=== PATIENT | female | born 1960 | race Caucasian/White ===

== ENCOUNTER 2018-10-10 09:01 | Outpatient (REF) | payer MEDICAID, SELFPAY ==
[2018-10-10 12:55] LABS: ALT 25 U/L (12-78); AST 22 U/L (15-37); Cholesterol 371 mg/dL (50-200); HDL Cholesterol 66 mg/dL (40-60); LDL CHOLESTEROL 270 mg/dL (<100); Triglyceride 70 mg/dL (30-150)
== END 2018-10-10 09:21 ==
LOC: NCHCN 09:01
PROVIDERS: PCP Family Medicine; Visit Provider Family Medicine
DX: E78.5 Hyperlipidemia, unspecified (principal)
CPT/HCPCS: 80061; 83721; 84450; 84460

== ENCOUNTER 2018-10-12 16:13 | Outpatient (REF) | payer MEDICAID, SELFPAY ==
--- NOTE | 2018-10-12 14:30 | PAPFT_PTH ---
PAT[facility]: [id number] AGE/SX: 58/F ROOM: RE10/12/[address]: Maryjane Castellon : 1960 BED: DIS: 10/12/2018 SPEC #: [id number] RECD: 10/16/18 13:05 STATUS: NATALIA REAlia #: [id number] JOSEPH: 10/12/18 14:[address]: Maryjane Castellon DEPT: [facility] Cytology RECD BY: Kathleen Yen ENTERED: 10/16/18 13:05 SP TYPE: PAPFT OTHR DR: Sun Cornejo Tissues: 1 - CX/ENDOCX FOR PAP SMEARS Procedures: PAP THIN PREP/[facility] Screening HPV DNA PROBE Comments: [id number]
== END 2018-10-12 16:33 ==
LOC: NCHCN 16:13
PROVIDERS: PCP Family Medicine; Visit Provider Nurse Practitioner Family
DX: Z12.4 Encounter for screening for malignant neoplasm of cervix (principal); Z11.51 Encounter for screening for human papillomavirus (HPV); Z01.419 Encounter for gynecological examination (general) (routine) without abnormal findings
CPT/HCPCS: 88142; 87624

== ENCOUNTER 2020-01-30 08:42 | Outpatient (REF) | payer SELFPAY ==
[2020-01-30 20:48] LABS: HCT 42.7 % (36.0-46.0); HGB 13.7 g/dL (11.2-15.7); MCH 28.8 pg (27.0-33.0); MCHC 32.1 % (32.0-36.0); MCV 89.7 fL (80-95); MPV 10.8 fL (8.0-11.0); Platelet Count 263 10^3/uL (130-400); RBC 4.76 10^6/uL (3.93-5.22); RDW 13.2 % (11.7-14.6); RDW-SD 43.8 fL; WBC 5.08 10^3/uL (4.4-10.8)
[2020-01-30 21:16] LABS: ALT 30 U/L (14-59); AST 23 U/L (15-37); Alkaline Phosphatase 78 U/L (46-116); Anion Gap 6.6 mmol/L (3-11); BUN 13 mg/dL (7-18); Bilirubin, Total 0.5 mg/dL (0.2-1.0); CO2 30.4 mmol/L (21.0-32.0); CREATININE 0.79 mg/dL (0.55-1.02); Calcium 9.1 mg/dL (8.5-10.1); Chloride 101 mmol/L (98-107); Glucose 98 mg/dL (74-106); HDL Cholesterol 69 mg/dL (40-60); Potassium 4.2 mmol/L (3.5-5.1); Sodium 138 mmol/L (136-145); Total Protein 7.5 g/dL (6.4-8.2); Triglyceride 90 mg/dL (<150)
[2020-01-30 21:17] LABS: Calculated LDL 412 mg/dL (<100); Cholesterol 499 mg/dL (<200)
== END 2020-01-30 09:02 ==
LOC: NCHCN 08:42
PROVIDERS: PCP Family Medicine; Visit Provider Family Medicine
DX: E78.5 Hyperlipidemia, unspecified (principal); Z00.00 Encounter for general adult medical examination without abnormal findings
CPT/HCPCS: 80053; 80061; 85027

== ENCOUNTER 2021-07-13 14:35 | Outpatient (REF) | payer SELFPAY ==
[2021-07-13 16:27] LABS: HCT 42.7 % (36.0-46.0); HGB 13.3 g/dL (11.2-15.7); MCH 28.8 pg (27.0-33.0); MCHC 31.1 % (32.0-36.0); MCV 92.4 fL (80-95); MPV 10.9 fL (8.0-11.0); Platelet Count 286 10^3/uL (130-400); RBC 4.62 10^6/uL (3.93-5.22); RDW 13.3 % (11.7-14.6); RDW-SD 45.2 fL; WBC 5.43 10^3/uL (4.4-10.8)
[2021-07-13 16:37] LABS: ALT 66 U/L (14-59); AST 35 U/L (15-37); Alkaline Phosphatase 95 U/L (46-116); BUN 21 mg/dL (7-18); Bilirubin, Total 0.3 mg/dL (0.2-1.0); Calcium 9.1 mg/dL (8.5-10.1); Chloride 102 mmol/L (98-107); Estimated GFR 56.56 (mL/min/1.73m2); Glucose 110 mg/dL (74-106); HDL Cholesterol 70 mg/dL (40-60); Potassium 4.6 mmol/L (3.5-5.1); Sodium 140 mmol/L (136-145); Total Protein 7.5 g/dL (6.4-8.2); Triglyceride 112 mg/dL (<150)
[2021-07-13 16:38] LABS: Calculated LDL 366 mg/dL (<100); Cholesterol 458 mg/dL (<200)
[2021-07-13 16:49] LABS: Bilirubin, Direct 0.1 mg/dL (0.0-0.2); Creatine Kinase 60 U/L (26-192)
== END 2021-07-13 14:36 | disposition home or self-care (01) ==
LOC: NCHCN 14:35
PROVIDERS: PCP Family Medicine; Visit Provider Family Medicine
DX: E78.5 Hyperlipidemia, unspecified (principal); E04.1 Nontoxic single thyroid nodule; Z00.00 Encounter for general adult medical examination without abnormal findings
CPT/HCPCS: 80053; 80061; 80076; 82550; 85027

== ENCOUNTER 2022-10-18 08:18 | Outpatient (REF) | payer SELFPAY ==
[2022-10-18 16:10] LABS: ALT 30 U/L (14-59); AST 20 U/L (15-37); Albumin 3.8 g/dL (3.4-5.0); Alkaline Phosphatase 84 U/L (46-116); Anion Gap 5.3 mmol/L (3-11); BUN 17 mg/dL (7-18); Bilirubin, Total 0.3 mg/dL (0.2-1.0); CO2 30.7 mmol/L (21.0-32.0); Calcium 9.6 mg/dL (8.5-10.1); Chloride 104 mmol/L (98-107); Glucose 101 mg/dL (74-106); HDL Cholesterol 66 mg/dL (40-60); Sodium 140 mmol/L (136-145); Total Protein 7.6 g/dL (6.4-8.2); Triglyceride 208 mg/dL (<150)
[2022-10-18 17:11] LABS: Calculated LDL 410 mg/dL (<100); Cholesterol 517 mg/dL (<200)
== END 2022-10-18 08:19 | disposition home or self-care (01) ==
LOC: NCHCN 08:18
PROVIDERS: PCP Family Medicine; Visit Provider Family Medicine
DX: Z00.00 Encounter for general adult medical examination without abnormal findings (principal); E78.5 Hyperlipidemia, unspecified
CPT/HCPCS: 80053; 80061

== ENCOUNTER 2023-10-30 13:25 | Outpatient (REF) | payer SELFPAY ==
[2023-10-30 15:21] LABS: Calculated LDL 310 mg/dL (<100); Cholesterol 417 mg/dL (<200); HDL Cholesterol 77 mg/dL (40-60); Triglyceride 153 mg/dL (<150)
== END 2023-10-30 13:26 | disposition home or self-care (01) ==
LOC: NCHCN 13:25
PROVIDERS: PCP Family Medicine; Visit Provider Family Medicine
DX: E78.5 Hyperlipidemia, unspecified (principal)
CPT/HCPCS: 80061

== ENCOUNTER 2024-10-01 11:48 | Outpatient (REF) | payer OTHER, SELFPAY ==
[2024-10-01 17:06] LABS: ALT 29 U/L (14-59); AST 22 U/L (15-37); Albumin 3.9 g/dL (3.4-5.0); Alkaline Phosphatase 91 U/L (46-116); Anion Gap 7.1 mmol/L (3-11); BUN 17 mg/dL (7-18); Bilirubin, Total 0.3 mg/dL (0.2-1.0); CO2 28.9 mmol/L (21.0-32.0); Calcium 9.5 mg/dL (8.5-10.1); Chloride 105 mmol/L (98-107); Estimated GFR 62.91 (mL/min/1.73m2); Glucose 102 mg/dL (74-106); Potassium 4.4 mmol/L (3.5-5.1); Sodium 141 mmol/L (136-145); Total Protein 7.3 g/dL (6.4-8.2)
[2024-10-02 05:30] LABS: Calculated LDL 378 mg/dL (<100); Cholesterol 470 mg/dL (<200); HDL Cholesterol 69 mg/dL (>or=50); Triglyceride 117 mg/dL (<150)
== END 2024-10-01 11:49 | disposition home or self-care (01) ==
LOC: NCHCN 11:48
PROVIDERS: PCP Family Medicine; Visit Provider Family Medicine
DX: E78.5 Hyperlipidemia, unspecified (principal)
CPT/HCPCS: 80053; 80061

== ENCOUNTER 2024-11-01 16:19 | Outpatient (REF) | payer OTHER, SELFPAY ==
--- NOTE | 2024-11-01 11:30 | PAPFT_PTH ---
PATIENT: Francesca Lea [facility] U#:[id number] AGE/SX: 64/F ROOM: RE11/01/[address]: Sun Cornejo : 1960 BED: DIS: 11/01/2024 SPEC #: [id number] RECD: 11/01/24 17:49 STATUS: NATALIA REAlia #: [id number] JOSEPH: 11/01/24 11:[address]: Sun Cornejo DEPT: [facility] Cytology RECD BY: Kathleen Yen Tissues: 1 - CX/ENDOCX FOR PAP SMEARS Procedures: PAP THIN PREP/[facility] Screening HPV DNA PROBE Comments: [id number] (HPV 16 & 18/45)
== END 2024-11-01 16:20 | disposition home or self-care (01) ==
LOC: NCHCN 16:19
PROVIDERS: PCP Family Medicine; Visit Provider Family Medicine
DX: Z11.51 Encounter for screening for human papillomavirus (HPV) (principal); Z01.419 Encounter for gynecological examination (general) (routine) without abnormal findings
CPT/HCPCS: 88142; 87624

== ENCOUNTER 2025-02-12 15:05 | Outpatient (REF) | payer OTHER, SELFPAY ==
[2025-02-12 15:00] LABS: ALT 21 U/L (14-59); AST 19 U/L (15-37); Albumin 3.9 g/dL (3.4-5.0); Alkaline Phosphatase 83 U/L (46-116); Bilirubin, Total 0.4 mg/dL (0.2-1.0); Calculated LDL 275 mg/dL (<100); Cholesterol 368 mg/dL (<200); HDL Cholesterol 63 mg/dL (>or=50); Total Protein 7.3 g/dL (6.4-8.2); Triglyceride 152 mg/dL (<150)
[2025-02-12 15:15] LABS: Bilirubin, Direct 0.1 mg/dL (0.0-0.2); Creatine Kinase 58 U/L (26-192)
== END 2025-02-12 15:06 | disposition home or self-care (01) ==
LOC: NCHCN 15:05
PROVIDERS: PCP Family Medicine; Visit Provider Family Medicine
DX: E78.5 Hyperlipidemia, unspecified (principal); M25.511 Pain in right shoulder
CPT/HCPCS: 80061; 80076; 82550